=== PATIENT | male | born 1990 | race Hispanic/Latino ===

== ENCOUNTER 2023-10-04 10:27 | Emergency (ER) | payer OTHER, BC ==
[~2023-10-04] VITALS: Ht 182.9 cm; Wt 101.6 kg
[2023-10-04 10:47] LABS: BASOPHILS # (AUTO) 0.03 K/uL (0.00-0.20); BASOPHILS % (AUTO) 0.4 % (0.0-5.0); EOSINOPHILS # (AUTO) 0.17 K/uL (0.00-0.70); EOSINOPHILS % (AUTO) 2.2 % (0.0-8.0); HEMATOCRIT 44.8 % (42-54); IMMATURE GRANULOCYTE ABSOLUTE 0.06 K/uL (0-1); LYMPHOCYTES # (AUTO) 3.3 K/uL (1.0-4.8); LYMPHOCYTES % (AUTO) 43.3 % (21.0-51.0); MEAN CORPUSCULAR HEMOGLOBIN 29.1 pg (27.0-33.0); MEAN CORPUSCULAR HGB CONC 32.8 g/dL (32.0-36.0); MEAN CORPUSCULAR VOLUME 88.7 fL (79-99); MONOCYTES # (AUTO) 0.9 K/uL (0.1-1.0); MONOCYTES % (AUTO) 11.3 % (3.0-13.0); NEUTROPHILS # (AUTO) 3.2 K/uL (1.8-7.7); PLATELET COUNT (AUTO) 312 K/uL (130-400); RED BLOOD CELL COUNT(AUTO) 5.05 MIL/uL (4.50-6.20); RED CELL DISTRIBUTION WIDTH 12.4 % (11.0-15.5); WHITE BLOOD COUNT (AUTO) 7.6 K/uL (4.8-10.8)
[2023-10-04] MEDS ORDERED: DIPH,PERTUSS(ACELL),TET VAC/PF 0.5 ML VIAL IM ONE (11:00)
[2023-10-04 11:35] LABS: BILIRUBIN,TOTAL 0.7 mg/dL (0.2-1.0); CREATININE 1.1 mg/dL (0.5-1.5); POTASSIUM 3.9 mmol/L (3.5-5.1); TOTAL PROTEIN, SERUM 8.1 g/dL (6.0-8.3)
[2023-10-04] MEDS ORDERED: KETOROLAC 30MG VIAL (30MG/ML) IVP ONE (12:00)
[2023-10-04] MEDS ORDERED: MORPHINE 4 MG SYG IVP ONE ×2 (12:00→15:30)
[2023-10-04] MEDS ORDERED: 0.9% NACL 500ML IV.SOLN 500 ML IV ONE (12:00)
[2023-10-04 12:52] LABS: APPEARANCE,URINE CLEAR (CLEAR); BILIRUBIN,URINE NEGATIVE (NEGATIVE); COLOR,URINE LIGHT-YELLOW (YELLOW); GLUCOSE, URINE (UA) NEGATIVE (NEGATIVE); KETONES,URINE NEGATIVE (NEGATIVE); LEUKOCYTE ESTERASE ,URINE NEGATIVE Leu/uL (NEGATIVE); NITRATE,URINE NEGATIVE (NEGATIVE); OCCULT BLOOD,URINE NEGATIVE (NEGATIVE); PROTEIN,URINE NEGATIVE (NEGATIVE); UROBILINOGEN,URINE 0.2 mg/dL (0.2-1.0)
[2023-10-04 12:56] LABS: ADD UA MICROSCOPIC NO
[2023-10-04] MEDS ORDERED: ORPHENADRINE CITRATE 30 MG/ML ML IVP ONE (13:30)
[2023-10-04] MEDS ORDERED: BACITRACIN 1 EACH PACKET TP ONE (14:41)
[2023-10-04] MEDS ORDERED: ONDANSETRON 4MG INJ IVP ONE (15:30)
[2023-10-04] MEDS ORDERED: IBUP-2077 PO (16:44)
[2023-10-04] MEDS ORDERED: CYCL-309 PO (16:44)
[2023-10-04 17:03] VITALS: BP 129/70; PULSE 70; RESP 14; O2SAT 100
== END 2023-10-04 17:04 | disposition home or self-care (01) ==
LOC: EDH 10:27
DX: S01.111A Laceration without foreign body of right eyelid and periocular area, initial encounter (principal); S39.012A Strain of muscle, fascia and tendon of lower back, initial encounter; S50.812A Abrasion of left forearm, initial encounter; S50.811A Abrasion of right forearm, initial encounter; V89.2XXA Person injured in unspecified motor-vehicle accident, traffic, initial encounter; Y93.89 Activity, other specified; Y92.89 Other specified places as the place of occurrence of the external cause; Y99.8 Other external cause status
CPT/HCPCS: 99285; 70450; 96374; 96375; 71045; 80053; 85025; 81003; 36415; 90715; 73080; 72125; 70486; 74176; 96376; 90471; J7040; J2405; J2270 ×2; J1885; J2360